=== PATIENT | male | born 1980 | race Caucasian/White ===

== ENCOUNTER 2018-09-25 22:10 | Emergency (ER) | payer OTHER ==
[~2018-09-25] VITALS: Ht 160 cm; Wt 60.0 kg
[2018-09-25 22:35] VITALS: Ht 160 cm; Wt 60.0 kg
--- NOTE | 2018-09-26 00:05 | ERD ---
ER Documentation Chief Complaint Chief Complaint R FOOT AND LEG PAIN,UNABLE AMBULATE,PT IS UNDER ARREST HPI This is a 38-year-old male right foot and leg pain suffered after he was trying to escape the police. He denies any fevers or chills. Denies any head trauma. Denies any other current issues. Pain is mild to moderate in intensity ROS All systems reviewed and are negative except as per history of present illness. Physical Exam Vitals Vital Signs Date Temp Pulse Resp B/P (MAP) Pulse Ox O2 O2 Flow FiO2 Time Delivery Rate 09/25/18 98.0 124 16 118/89 96 22:35 (99) Physical Exam Const: No acute distress Head: Atraumatic Eyes: Normal Conjunctiva ENT: Normal External Ears, Nose and Mouth. Neck: Full range of motion. No meningismus. Resp: Clear to auscultation bilaterally Cardio: Regular rate and rhythm, no murmurs Abd: Soft, non tender, non distended. Normal bowel sounds Skin: No petechiae or rashes Back: No midline or flank tenderness Ext: No cyanosis, or edema Neur: Awake and alert Psych: Normal Mood and Affect Procedures/MDM X-ray Ankle 3V Interpreted by me: Bones: [No fracture] Joints: No dislocation X-ray Tib/Fib 2V Interpreted by me: Bones: [No fracture] Joints: [No dislocation] Foreign body: [None] Medical decision making: This is a patient who comes in with essentially sprain of his ankle status post escaping from police. Patient is stable medically cleared to be developed. Neymar wrap applied. Patient was neurovascularly intact pre-and post Neymar wrap application Departure Diagnosis: Primary Impression: Medical clearance for incarceration Additional Impression: Sprain and strain of ankle Condition: Stable Patient Instructions: Sprain, Ankle, With X-Ray, Detention Clearance YESSI LAU Sep 26, 2018 00:05
[2018-09-26 00:15] VITALS: BP 125/69; PULSE 99; RESP 16
== END 2018-09-26 00:27 ==
LOC: E/R 22:10
DX: S96.911A Strain of unspecified muscle and tendon at ankle and foot level, right foot, initial encounter (principal); X58.XXXA Exposure to other specified factors, initial encounter; Y92.9 Unspecified place or not applicable; Z02.89 Encounter for other administrative examinations
CPT/HCPCS: 73590